=== PATIENT | male | born 1945 | race Caucasian/White ===

== ENCOUNTER 2017-01-21 05:49 | Day surgery (SDC) | payer MEDICARE, BC ==
[2017-01-21] MEDS ORDERED: Dextrose 5%-0.45% NaCl 1,000 ML IV SCH (06:00)
[2017-01-21] MEDS ORDERED: Sodium Chloride 0.9% 10 ML Syringe FLUSH PRN (06:00)
[2017-01-21] MEDS ORDERED: fentaNYL 100 MCG/2 ML SDV ONE (06:13)
[2017-01-21] MEDS ORDERED: Midazolam 1 MG/ML 2 ML SDV ONE (06:13)
[2017-01-21] MEDS ORDERED: Sodium Chloride 0.9% 1,000 ML IV ONE (06:30)
[2017-01-21 07:17] VITALS: BP 120/77
== END 2017-01-21 07:00 | disposition other institution (70) ==
LOC: DL.ENDO 05:49 → DL.SDS 05:49
PROVIDERS: ATTEND Internal Medicine Gastroenterology
DX: Z12.11 Encounter for screening for malignant neoplasm of colon (principal); Z53.8 Procedure and treatment not carried out for other reasons; I10 Essential (primary) hypertension; E78.5 Hyperlipidemia, unspecified; N40.0 Benign prostatic hyperplasia without lower urinary tract symptoms; Z98.890 Other specified postprocedural states; Z88.0 Allergy status to penicillin; R55 Syncope and collapse; Z87.891 Personal history of nicotine dependence; Z79.82 Long term (current) use of aspirin; Z79.899 Other long term (current) drug therapy
CPT/HCPCS: 36415; 80053; 81001; 85025; 93005; 93010; 99284; J7030; J7042

== ENCOUNTER 2017-01-21 07:20 | Emergency (ER) | payer MEDICARE, BC ==
[2017-01-21 07:27] VITALS: BP 128/70
--- NOTE | 2017-01-21 07:32 | EDM.PDOC ---
ED HPI GENERAL MEDICAL PROBLEM - General Chief Complaint: Syncope Stated Complaint: ER Time Seen by Provider: 01/21/17 07:27 Source of Information: Reports: Patient, RN, RN Notes Reviewed History Limitations: Reports: No Limitations - History of Present Illness INITIAL COMMENTS - FREE TEXT/NARRATIVE: Patient presents to the ER from [facility] after having a syncopal episode as stated by [facility] staff. [facility] staff states his IV was placed, the patient asked to go to the bathroom, and when he stood he fell. The patient states he became dizzy and fell to a knee and caught himself. He denies hitting his head, and denies any pain at this time. He states he feels fine at this time, and that this happens any time he gets a shot or IV. He denies any recent illnesses, fever, chills, chest pain, sob, N/V/D. He states he was to have a routine colonoscopy today. This has been cancelled until a later date. Onset: Today, Sudden - Related Data Allergies Allergy/AdvReac Type Severity Reaction Status Date / Time Penicillins Allergy Cannot Verified 01/21/17 07:41 Remember Home Meds: Home Meds Aspirin [Adult Low Dose Aspirin EC] 81 mg PO DAILY 02/04/16 [History] Losartan [Cozaar] 1 tab PO DAILY 02/04/16 [History] Multivit-Min/Iron Fum/Folic AC [Mqbvv-Luubehs-Nvvsxktm Tablet] 1 tab PO DAILY [History] Sildenafil [Viagra] 50 mg PO ASDIRECTED PRN 02/04/16 [History] atorvaSTATin [Lipitor] 10 mg PO DAILY 02/04/16 [History] Lutein/Minerals/Vit A,C & E [Ocuvite] 1 tab PO DAILY 01/20/17 [History] Past Medical History HEENT History: Reports: Cataract Cardiovascular History: Reports: High Cholesterol, Hypertension Respiratory History: Reports: None Gastrointestinal History: Reports: None Genitourinary History: Reports: BPH, Other (See Below) Other Genitourinary History: Erectile dysfunction Musculoskeletal History: Reports: None Neurological History: Reports: None Psychiatric History: Reports: None Endocrine/Metabolic History: Reports: None Hematologic History: Reports: None Immunologic History: Reports: None Oncologic (Cancer) History: Reports: None Dermatologic History: Reports: None - Infectious Disease History Infectious Disease History: Reports: Chicken Pox, Measles, Mumps - Past Surgical History Head Surgeries/Procedures: Reports: None HEENT Surgical History: Reports: Cataract Surgery Cardiovascular Surgical History: Reports: None Respiratory Surgical History: Reports: None GI Surgical History: Reports: Colonoscopy Male Surgical History: Reports: Circumcision, Prostate Biopsy Neurological Surgical History: Reports: None Musculoskeletal Surgical History: Reports: None Oncologic Surgical History: Reports: None Social & Family History - Family History HEENT: Reports: None Cardiac: Reports: None Respiratory: Reports: None GI: Reports: None Musculoskeletal: Reports: None Neurological: Reports: CVA Psychiatric: Reports: None Endocrine/Metabolic: Reports: Diabetes, type II Hematologic: Reports: None Immunologic: Reports: None Oncologic: Reports: None - Tobacco Use Smoking Status *Q: Former Smoker Years of Tobacco use: 20 Month Tobacco Last Used: 1979 Second Hand Smoke Exposure: No - Caffeine Use Caffeine Use: Reports: Coffee - Recreational Drug Use Recreational Drug Use: No ED ROS GENERAL - Review of Systems Review Of Systems: ROS reveals no pertinent complaints other than HPI. ED EXAM, DIZZINESS - Physical Exam Exam: See Below Exam Limited By: No Limitations General Appearance: Alert, WD/WN, No Apparent Distress Eye Exam: Bilateral Eye: Normal Inspection Ears: Normal External Exam, Hearing Grossly Normal Nose: Normal Inspection Throat/Mouth: Normal Inspection, Normal Voice, No Airway Compromise Head Exam: Atraumatic, Normocephalic Neck: Normal Inspection, Supple, Non-Tender, Full Range of Motion Respiratory/Chest: No Respiratory Distress, Lungs Clear, Normal Breath Sounds, No Accessory Muscle Use, Chest Non-Tender Cardiovascular: Normal Peripheral Pulses, Regular Rate, Rhythm, No Edema, No Gallop, No JVD, No Murmur, No Rub GI/Abdominal: Normal Bowel Sounds, Soft, Non-Tender, No Organomegaly, No Distention, No Abnormal Bruit, No Mass (Male) Exam: Deferred Rectal (Males) Exam: Deferred Neurological: Alert, Normal Mood/Affect, Normal Gait, No Motor/Sensory Deficits , Oriented x 3 Back Exam: Normal Inspection, Full Range of Motion Extremities: Normal Inspection, Normal Range of Motion, Non-Tender, No Pedal Edema, Normal Capillary Refill Psychiatric: Normal Affect, Normal Mood Skin Exam: Warm, Dry, Intact, Normal Color, No Rash EKG INTERPRETATION EKG Date: 01/21/17 Time: 07:41 Rhythm: Other (bradycardia) Rate (Beats/Min): 51 [place]: Normal P-Wave: Present QRS: Normal ST-T: Normal QT: Normal Comparison: NA - No Prior EKG EKG Interpretation Comments: PVC noted Course - Vital Signs Last Recorded V/S: Last Vital Signs Temp 97.0 F 01/21/17 07:26 Pulse 50 L 01/21/17 07:26 Resp 20 01/21/17 07:26 BP 128/70 01/21/17 07:26 Pulse Ox 100 01/21/17 07:26 Orthostatic Blood Pressure [ 121/83 Standing] Orthostatic Blood Pressure [ 129/64 Sitting] Orthostatic Blood Pressure [ 125/71 Supine] - Orders/Labs/Meds Orders: Active Orders 24 hr Category Date Time Status EKG Documentation Completion [RC] STAT Care 01/21/17 07:33 Active Orthostatic Vital Signs [RC] ASDIRECTED Care 01/21/17 07:22 Active CBC WITH AUTO DIFF [HEME] Stat Lab 01/21/17 07:33 Ordered COMPREHENSIVE METABOLIC PN,CMP [CHEM] Stat Lab 01/21/17 07:33 Ordered UA W/MICROSCOPIC [URIN] Stat Lab 01/21/17 08:20 Results Labs: Laboratory Tests 01/21/17 01/21/17 01/21/17 Range/Units 07:52 07:52 08:20 WBC 9.1 (5.0-10.0) 10^3/uL RBC 4.16 L (4.6-6.2) 10^6/uL Hgb 13.2 L (14.0-18.0) g/dL Hct 39.7 L (40.0-54.0) % MCV 95.4 (80-100) fL MCH 31.7 (27.0-34.0) pg MCHC 33.2 (33.0-35.0) g/dL Plt Count 217 (150-450) 10^3/uL Neut % (Auto) 69.5 (42.2-75.2) % Lymph % (Auto) 18.2 L (20.5-50.1) % Leon % (Auto) 8.5 H (2-8) % Eos % (Auto) 3.5 H (1.0-3.0) % Baso % (Auto) 0.3 (0.0-1.0) % Sodium 142 (135-145) mmol/L Potassium 4.4 (3.6-5.0) mmol/L Chloride 102 (101-111) mmol/L Carbon Dioxide 30.0 (21.0-31.0) mmol/L Anion Gap 14.4 BUN 18 (7-18) mg/dL Creatinine 0.9 (0.6-1.3) mg/dL Est Cr Clr Drug Dosing 75.48 mL/min Estimated GFR (MDRD) > 60 BUN/Creatinine Ratio 20.00 Glucose 99 (74-105) mg/dL Calcium 8.9 (8.4-10.2) mg/dl Total Bilirubin 1.0 (0.2-1.0) mg/dL AST 35 (10-42) IU/L ALT 28 (10-60) IU/L Alkaline Phosphatase 57 (42-121) IU/L Total Protein 6.7 (6.7-8.2) g/dl Albumin 3.7 (3.2-5.5) g/dl Globulin 3.0 Albumin/Globulin Ratio 1.23 Urine Color Yellow (YELLOW) Urine Appearance Clear (CLEAR) Urine pH 7.5 (5.0-9.0) Ur Specific [place] 1.020 (1.005-1.030) Urine Protein 30 H (NEGATIVE) Urine Glucose (UA) Negative (NEGATIVE) Urine Ketones 15 H (NEGATIVE) Urine Occult Blood Trace-intact H (NEGATIVE) Urine Nitrite Negative (NEGATIVE) Urine Bilirubin Small H (NEGATIVE) Urine Urobilinogen 0.2 (0.2-1.0) mg/dL Ur Leukocyte Esterase Negative (NEGATIVE) Departure - Departure Time of Disposition: 08:37 Disposition: Home, Self-Care 01 Condition: Good Clinical Impression: Syncope Qualifiers: Syncope type: vasovagal syncope Qualified Code(s): R55 - Syncope and collapse - Discharge Information Instructions: Syncope, [id number] Forms: ED Department Discharge Additional Instructions: Rest today. Follow up with Dr. Grewal - My Orders Last 24 Hours: My Active Orders 01/21/17 07:22 Orthostatic Vital Signs [RC] ASDIRECTED 01/21/17 07:33 EKG Documentation Completion [RC] STAT CBC WITH AUTO DIFF [HEME] Stat COMPREHENSIVE METABOLIC PN,CMP [CHEM] Stat 01/21/17 08:20 UA W/MICROSCOPIC [URIN] Stat - Assessment/Plan Last 24 Hours: My Active Orders 01/21/17 07:22 Orthostatic Vital Signs [RC] ASDIRECTED 01/21/17 07:33 EKG Documentation Completion [RC] STAT CBC WITH AUTO DIFF [HEME] Stat COMPREHENSIVE METABOLIC PN,CMP [CHEM] Stat 01/21/17 08:20 UA W/MICROSCOPIC [URIN] Stat
[2017-01-21 08:20] LABS: CHLORIDE,CL 102 mmol/L (101-111); SODIUM,NA 142 mmol/L (135-145)
--- NOTE | 2017-01-22 11:47 | EKG ---
01/21/2017 - RENALDO EARLY - Twelve-lead EKG shows normal sinus rhythm with sinus bradycardia with heart rate of 51. GA interval of 188. QTC 406. No significant ST elevation or ST depression noted on this 12-lead EKG. Nonspecific T-wave changes noted on lead V3 V4, V5, and V6. [facility] /[id number]
--- NOTE | 2017-01-25 08:32 | EKG ---
01/21/2017- RENALDO EARLY - Twelve-lead EKG shows normal sinus rhythm with sinus bradycardia with a ventricular premature complex, ME interval of 188, QTc of 406. No significant ST elevation or ST depression noted on this 12-lead EKG. [facility] /[id number]
== END 2017-01-21 08:48 | disposition home or self-care (01) ==
LOC: DL.ED 07:20
DX: R55 Syncope and collapse (principal); Z88.0 Allergy status to penicillin; Z79.82 Long term (current) use of aspirin; Z79.899 Other long term (current) drug therapy; Z87.891 Personal history of nicotine dependence
CPT/HCPCS: 36415; 80053; 81001; 85025; 93005; 93010; 99284

== ENCOUNTER 2017-06-11 06:51 | Day surgery (SDC) | payer MEDICARE, BC ==
[~2017-06-11 06:51] MED LIST: Dextrose 5%-0.45% NaCl 1,000 ML IV SCH; Midazolam 1 MG/ML 2 ML SDV ONE; Sodium Chloride 0.9% 10 ML Syringe FLUSH PRN; fentaNYL 100 MCG/2 ML SDV ONE
[2017-06-11] MEDS ORDERED: Midazolam 1 MG/ML 2 ML SDV IV ONE ×5 (06:52→08:40)
[2017-06-11] MEDS ORDERED: fentaNYL 100 MCG/2 ML SDV IV ONE ×3 (06:52→08:35)
--- NOTE | 2017-06-11 09:57 | OR ---
DATE: 06/11/2017 PROCEDURE: Total colonoscopy. INSTRUMENT USED: CF-H180 AL Olympus video colonoscope. PREMEDICATIONS: Fentanyl 100 mcg intravenous, Versed 3 mg intravenous. Nasal O2 cannula. 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 INDICATION: Screening colonoscopic examination is done for detection of any polypoid lesions and removal, endoscopic hemostasis therapy if needed. DESCRIPTION OF PROCEDURE: Initial rectal exam showed firm prostatic bed. Rigid anoscopy was normal. The colonoscope was passed with ease. Numerous diverticula were noted in the distal left colon along with deformity. The scope was passed with ease up to the ileocecal area. Photographs were taken of the normal-appearing cecum identified by double-bulged ileocecal folds. No bleeding was noted from any of the visualized areas at the commencement of the examination. No stricture. No vascular ectasia. No large isolated ulcerations seen. No evidence of diffuse inflammatory bowel disease in the form of friability, contact bleeding, or ulcerations. No polyp or tumor mass identified. Probing the proximal sides of folds and flexures, using adequate distention and clearing of the stool material, withdrawal of the scope was made. [id number] time over 6 minutes. No bleeding was noted from any of the visualized areas at the completion of examination. IMPRESSION: Diverticulosis. The patient tolerated the procedure well. [facility] /[id number]
[2017-06-11 11:02] VITALS: BP 136/86
== END 2017-06-11 10:50 | disposition home or self-care (01) ==
LOC: DL.ENDO 06:51
PROVIDERS: ATTEND Internal Medicine Gastroenterology
DX: Z12.11 Encounter for screening for malignant neoplasm of colon (principal); K57.30 Diverticulosis of large intestine without perforation or abscess without bleeding; I10 Essential (primary) hypertension; E78.5 Hyperlipidemia, unspecified; N40.0 Benign prostatic hyperplasia without lower urinary tract symptoms
CPT/HCPCS: G0121; J2250; J3010; J7042

== ENCOUNTER 2022-05-05 12:39 | Emergency (ER) | payer MEDICARE, BC ==
[2022-05-05 12:54] VITALS: BP 149/105; PULSE 95
== END 2022-05-05 13:24 | disposition home or self-care (01) ==
LOC: DL.ED 12:39
DX: R00.2 Palpitations (principal); I48.91 Unspecified atrial fibrillation; I10 Essential (primary) hypertension; E78.00 Pure hypercholesterolemia, unspecified; Z88.0 Allergy status to penicillin; Z79.82 Long term (current) use of aspirin; Z79.899 Other long term (current) drug therapy; Z87.891 Personal history of nicotine dependence
CPT/HCPCS: 93010; 99283